=== PATIENT | female | born 1965 | race African-American/Black ===

== ENCOUNTER 2023-04-11 23:31 | Emergency (ER) | payer BC, OTHER ==
[2023-04-11 23:37] VITALS: RESP 18; BMI 29.0
[2023-04-11 23:38] VITALS: TEMP 98.1
[2023-04-12 00:48] VITALS: BP 155/90; PULSE 76
[2023-04-12 00:53] LABS: EPI CELLS 1 /uL (0-25.1); HYALINE CASTS 0 /uL (0-3.1); PH,URINE 6.5 (5.0-8.0); URINE APPEARANCE CLEAR; URINE BACTERIA 8 /uL (0-1359); URINE BILIRUBIN NEGATIVE (NEGATIVE); URINE COLOR YELLOW; URINE GLUCOSE (UA) NEGATIVE (NEGATIVE); URINE KETONE NEGATIVE (NEGATIVE); URINE LEUK ESTERASE NEGATIVE (NEGATIVE); URINE NITRITE NEGATIVE (NEGATIVE); URINE PROTEIN NEGATIVE (NEGATIVE); URINE RBC 32 /uL (0-23.9); URINE UROBILINOGEN 0.2 mg/dL (0.2-1.0); URINE WBC 1 /uL (0-25.8)
[2023-04-12 01:41] LABS: BASO % 0.8 % (0-2.0); EOS % 0.9 % (0-4.5); HEMATOCRIT 38.5 % (32.4-45.2); HEMOGLOBIN 13.2 GM/dL (10.7-15.3); LYMPH % 24.1 % (8-40); MCH 24.1 pg (25.7-33.7); MCHC 34.2 g/dl (32.0-36.0); MEAN CELL VOLUME 70.6 fl (80-96); MEAN PLT VOLUME 8.7 fl (7.5-11.1); MONO % 8.5 % (3.8-10.2); NEUT % 65.7 % (42.8-82.8); PLATELET COUNT 193 10^3/uL (134-434); RBC 5.45 M/mm3 (3.60-5.2); RDW 16.7 % (11.6-15.6); WHITE BLOOD COUNT 5.2 K/mm3 (4.0-10.0)
[2023-04-12 01:42] LABS: INR 1.06 (0.83-1.09); PROTHROMBIN TIME (PATIENT) 12.3 SEC (9.7-13.0)
[2023-04-12 01:45] LABS: ACTIVATED PTT 32.6 SECONDS (25.2-36.5)
[2023-04-12 01:58] LABS: POTASSIUM 3.8 mmol/L (3.5-5.1)
[2023-04-12 02:02] LABS: ALBUMIN 3.5 g/dl (3.4-5.0); BLOOD UREA NITROGEN 12.1 mg/dL (7-18); CALCIUM 9.3 mg/dL (8.5-10.1)
[2023-04-12 02:05] LABS: CREATININE 0.9 mg/dL (0.55-1.3)
[2023-04-12 02:08] LABS: BILIRUBIN,TOTAL 0.2 mg/dL (0.2-1)
== END 2023-04-12 05:17 | disposition home or self-care (01) ==
LOC: JER 23:31
DX: I10 Essential (primary) hypertension (principal); R53.1 Weakness
CPT/HCPCS: 36415; 71045-TC-FY; 80053; 81003; 84484; 85025; 85610; 85730; 87086; 93005; 93010; 99285-25

== ENCOUNTER 2024-03-19 21:02 | Emergency (ER) | payer BC, OTHER ==
[2024-03-19 21:22] VITALS: TEMP 97.7; BMI 28.7
[2024-03-19 22:36] LABS: HEMATOCRIT 42.1 % (32.4-45.2); HEMOGLOBIN 13.9 GM/dL (10.7-15.3); MEAN CELL VOLUME 72.5 fl (80-96); MEAN PLT VOLUME 8.8 fl (7.5-11.1); PLATELET COUNT 212 10^3/uL (134-434); RDW 15.9 % (11.6-15.6); WHITE BLOOD COUNT 7.8 K/mm3 (4.0-10.0)
[2024-03-19 22:57] LABS: POTASSIUM 3.4 mmol/L (3.5-5.1)
[2024-03-19 22:59] LABS: CALCIUM 9.8 mg/dL (8.5-10.1)
[2024-03-19 23:00] LABS: ALBUMIN 3.9 g/dl (3.4-5.0); BLOOD UREA NITROGEN 15.6 mg/dL (7-18)
[2024-03-19 23:03] LABS: CREATININE 0.9 mg/dL (0.55-1.3)
[2024-03-19 23:04] LABS: BILIRUBIN,TOTAL 0.4 mg/dL (0.2-1)
[2024-03-19 23:05] LABS: TOT PROT 8.5 g/dl (6.4-8.2)
[2024-03-20 02:09] VITALS: BP 116/78; PULSE 60; RESP 16
== END 2024-03-20 02:09 | disposition home or self-care (01) ==
LOC: JER 21:02
DX: R06.02 Shortness of breath (principal); Z20.822 Contact with and (suspected) exposure to COVID-19
CPT/HCPCS: 0241U-QW; 36415; 71046-TC-FY; 80053; 84484; 85027; 93005; 93010; 99285-25